=== PATIENT | female | born 1985 | race Caucasian/White ===

== ENCOUNTER 2016-09-17 21:37 | Emergency (ER) | payer OTHER ==
[~2016-09-17] VITALS: Ht 170.2 cm; Wt 122.1 kg
[2016-09-17 21:39] VITALS: TEMP 36.3; Ht 170.2 cm; Wt 122.1 kg
[2016-09-17] MEDS ORDERED: SODIUM CHLORIDE 0.9% 1000ML 1,000 ML IV STA (22:43)
[2016-09-17] MEDS ORDERED: ONDANSETRON INJ 2 MG/ML 2 ML VIAL IV STA (22:43)
[2016-09-17] MEDS ORDERED: KETOROLAC TROMETHAMINE 30 MG/ML VIAL IV STA (22:43)
[2016-09-17 23:10] LABS: HEMATOCRIT 39.5 % (37-47); MEAN CORPUSCULAR HEMOGLOBIN 26.3 pg (25-34); MEAN CORPUSCULAR HGB CONC 32.2 g/dl (32-36); MEAN PLATELET VOLUME 10.6 fL (7.4-10.4); PLATELET COUNT 323 K/uL (130-400); RED BLOOD COUNT 4.82 M/uL (4.2-5.4); URINE APPEARANCE CLEAR (CLEAR); URINE BILIRUBIN NEG (NEG); URINE COLOR YELLOW; URINE NITRITE NEG (NEG); URINE SPECIFIC GRAVITY 1.035 (1.000-1.030); UROBILINOGEN NEG (NEG); WHITE BLOOD COUNT 9.44 K/uL (4.8-10.8); ZZUR CULT IF INDIC CLEAN CATCH NO
[2016-09-17 23:11] LABS: MANUAL MICROSCOPIC REQUIRED? NO; REVIEW REQ? NO
--- NOTE | 2016-09-17 23:15 | EMERGENCY ROOM VISIT NOTE ---
History Report prepared by Zoran: Brennen Negrete Under the Supervision of: Dr. Joann Scott M.D. First contact with patient: 22:35 Chief Complaint: URINARY SYMPTOMS Stated Complaint: BURNING,FOUL URINE ODER,PAIN History of Present Illness The patient is a 30 year old female who presents to the Emergency Room with complaints of worsening dysuria beginning a few months ago. She currently rates her discomfort an 8/10 in severity. The patient states that she has had malodorous urine for the past few months and has been checking up with her PCP. The patient notes that she has had clear discharge upon urination. She reports that she was [facility] [employer] this evening and started vomiting. She also notes that she has had back pain. The patient notes that is currently taking quinapril. She denies any chance of being , and her last menstrual period was two weeks ago. She states that she is occasionally sexually active with her boyfriend but has not been for a little bit. The patient reports that she had to move her follow-up appointment with her PCP to tomorrow because of her blood pressure fluctuations. She states that she has pre-diabetes. Source of History: patient Onset: few months ago Position: other (bladder) Symptom Intensity: 8/10 Quality: other (dysuria) Timing: worsening Associated Symptoms: + vomiting, + back pain Review of Systems See HPI for pertinent positives & negatives. A total of 10 systems reviewed and were otherwise negative. Past Medical & Surgical Medical Problems: (1) Asthma (2) Diabetes (3) Hypertension Surgical Problems: (1) Hx of tonsillectomy Family History Cancer Diabetes mellitus Heart disease Hypertension Social History Smoking Status: Never Smoker Smokeless Tobacco Use: No Alcohol Use: none Marital Status: other (legally seperated) Housing Status: lives alone Occupation Status: student Current/Historical Medications Scheduled Terconazole (Terconazole), 1 APPL PV qhs Physical Exam Vital Signs Date Time Temp Pulse Resp B/P (MAP) Pulse Ox O2 Delivery O2 Flow Rate FiO2 09/18/16 00:05 68 17 118/71 95 09/17/16 23:09 74 18 147/78 97 Room Air 09/17/16 21:39 36.3 73 18 135/81 95 Room Air Physical Exam Vital signs reviewed. General: Well-appearing, obese, in no significant distress. HEENT: No scleral icterus, PERRLA, neck supple. Atraumatic. Cardiovascular: Regular rate and rhythm, no extra sounds. Pulmonary: Clear to auscultation bilaterally, normal work of breathing. Abdomen: Soft, mild suprapubic tenderness, nondistended, positive bowel sounds. Pelvic exam: extremely limited to body habitus, mild labial irritation, no appreciable lesion, foul odor, chunky white vaginal discharge, cervix not appreciated. Musculoskeletal: Atraumatic, no peripheral edema. Neurologic: Patient awake alert and oriented x 3, full strength in all 4 extremities. Cranial nerves 2 through 12 grossly intact. Skin: Warm, dry, no rash Medical Decision & Procedures Laboratory Results 09/17/16 22:55 Red Blood Count 4.82, Mean Corpuscular Volume 82.0, Mean Corpuscular Hemoglobin 26.3, Mean Corpuscular Hemoglobin Concent 32.2, Mean Platelet Volume 10.6, Neutrophils (%) (Auto) 46.8, Lymphocytes (%) (Auto) 41.5, Monocytes (%) (Auto) 9.0, Eosinophils (%) (Auto) 2.0, Basophils (%) (Auto) 0.4, Neutrophils # (Auto) 4.41, Lymphocytes # (Auto) 3.92, Monocytes # (Auto) 0.85, Eosinophils # (Auto) 0.19, Basophils # (Auto) 0.04 09/17/16 22:55 Test 09/17/16 22:55 09/17/16 23:30 White Blood Count 9.44 K/uL (4.8-10.8) Red Blood Count 4.82 M/uL (4.2-5.4) Hemoglobin 12.7 g/dL (12.0-16.0) Hematocrit 39.5 % (37-47) Mean Corpuscular Volume 82.0 fL (80-100) Mean Corpuscular Hemoglobin 26.3 pg (25-34) Mean Corpuscular Hemoglobin Concent 32.2 g/dl (32-36) Platelet Count 323 K/uL (130-400) Mean Platelet Volume 10.6 fL (7.4-10.4) Neutrophils (%) (Auto) 46.8 % Lymphocytes (%) (Auto) 41.5 % Monocytes (%) (Auto) 9.0 % Eosinophils (%) (Auto) 2.0 % Basophils (%) (Auto) 0.4 % Neutrophils # (Auto) 4.41 K/uL (1.4-6.5) Lymphocytes # (Auto) 3.92 K/uL (1.2-3.4) Monocytes # (Auto) 0.85 K/uL (0.11-0.59) Eosinophils # (Auto) 0.19 K/uL (0-0.5) Basophils # (Auto) 0.04 K/uL (0-0.2) RDW Standard Deviation 42.0 fL (36.4-46.3) RDW Coefficient of Variation 13.9 % (11.5-14.5) Immature Granulocyte % (Auto) 0.3 % Immature Granulocyte # (Auto) 0.03 K/uL (0.00-0.02) Red Blood Cell Morphology Unremarkable Urine Color YELLOW Urine Appearance CLEAR (CLEAR) Urine pH 6.0 (4.5-7.5) Urine Specific [place] 1.035 (1.000-1.030) Urine Protein NEG (NEG) Urine Glucose (UA) NEG (NEG) Urine Ketones TRACE (NEG) Urine Occult Blood NEG (NEG) Urine Nitrite NEG (NEG) Urine Bilirubin NEG (NEG) Urine Urobilinogen NEG (NEG) Urine Leukocyte Esterase NEG (NEG) Urine Test NEG (NEG) Anion Gap 9.0 mmol/L (3-11) Est Creatinine Clear Calc Drug Dose 132.3 ml/min Estimated GFR () 107.3 Estimated GFR (Non- 92.6 BUN/Creatinine Ratio 22.6 (10-20) Calcium Level 8.6 mg/dl (8.5-10.1) Total Bilirubin 0.2 mg/dl (0.2-1) Direct Bilirubin < 0.1 mg/dl (0-0.2) Aspartate Amino Transf (AST/SGOT) 26 U/L (15-37) Alanine Aminotransferase (ALT/SGPT) 58 U/L (12-78) Alkaline Phosphatase 89 U/L (45-117) Total Protein 7.0 gm/dl (6.4-8.2) Albumin 3.7 gm/dl (3.4-5.0) Date/Time Source Procedure Growth Status 09/17/16 23:30 Cervix Swab Trichomonas Preparation - Final Complete Laboratory results per my review. Medications Administered Medications (Trade) Dose Ordered Sig/Rodrigo Route Start Time Stop Time Status Last Admin Dose Admin Ketorolac Tromethamine (Toradol Inj) 30 mg NOW STAT IV 09/17/16 22:43 09/17/16 22:44 DC 09/17/16 23:09 30 MG Ondansetron HCl (Zofran Inj) 4 mg NOW STAT IV 09/17/16 22:43 09/17/16 22:44 DC 09/17/16 23:09 4 MG Sodium Chloride 1,000 ml @ 999 mls/hr Q1H1M STAT IV 09/17/16 22:43 09/17/16 23:43 DC 09/17/16 23:09 999 MLS/HR Fluconazole (Diflucan Tab) 150 mg NOW STAT PO 09/17/16 23:49 09/17/16 23:50 DC 09/17/16 23:53 150 MG ED Course 2240: Past medical records reviewed. The patient was evaluated in room C05. A complete history and physical examination was performed. 2243: Ordered Sodium Chloride 1000 ml @ 999 mls/hr IV, Zofran Inj 4mg IV, Toradol Inj 30mg IV 2327: At this time I performed a pelvic exam, see physical exam for further detail. I discussed findings with her. She verbalized agreement of the treatment plan. The patient will be discharged home when she receives her medication. 2349: Ordered Diflucan 150mg PO Medical Decision Differential diagnosis: UTI, kidney stone, vaginitis, pyelonephritis, diverticulitis This patient was evaluated and appeared to be in no significant distress. IV access was obtained and laboratory work was drawn. The patient was feeling somewhat improved with IV Toradol IV Zofran and IV hydration. Urinalysis is negative. A pelvic exam was performed and cultures were obtained. It seems as though the patient is several from a vaginal candidiasis. She was given 150 mg of Diflucan orally. She is given a prescription for Terazol 7. Patient will follow-up with [facility] this week for reevaluation and follow-up regarding her cultures. The patient will return to the ER for worsening of symptoms or any medical concerns. Impression Primary Impression: Yeast infection involving the vagina and surrounding area Scribe Attestation The scribe's documentation has been prepared under my direction and personally reviewed by me in its entirety. I confirm that the note above accurately reflects all work, treatment, procedures, and medical decision making performed by me. Departure Information Dispostion Home / Self-Care Prescriptions Terconazole (Terconazole) 7 Appln/45 Gm Cr 1 APPL PV qhs for 7 Days, #1 BOX Prov: Joann Scott M.D. 09/17/16 Referrals Ronny Bo M.D. (PCP) Forms HOME CARE DOCUMENTATION FORM, IMPORTANT VISIT INFORMATION Patient Instructions My [facility] Additional Instructions Diagnosis: Yeast infection, vaginal You were given diflucan in the ED Terazol 7, 1 applicator full into vagina at night before bed for 7 days. Follow up with OBGYN for reevaluation. Vaginal cultures are pending and you will be contacted if additional treatment is needed. Return to emergency for worsening of symptoms or any medical concerns.
[2016-09-17 23:29] LABS: ALT/SGPT 58 U/L (12-78); AST/SGOT 26 U/L (15-37); BLOOD UREA NITROGEN 19 mg/dl (7-18); BUN/CREATININE RATIO 22.6 (10-20); CALCIUM 8.6 mg/dl (8.5-10.1); CARBON DIOXIDE 26 mmol/L (21-32); CHLORIDE 111 mmol/L (98-107); CREATININE 0.85 mg/dl (0.60-1.20); GLUCOSE 97 mg/dl (70-99); POTASSIUM 3.8 mmol/L (3.5-5.1); SODIUM 146 mmol/L (136-145)
[2016-09-17 23:32] LABS: ALKALINE PHOSPHATASE 89 U/L (45-117)
[2016-09-17 23:34] LABS: BASO % 0.4 %; BASO ABS # 0.04 K/uL (0-0.2); COMPLETE YES; IG% 0.3 %; LYMPH % 41.5 %; LYMPH ABS # 3.92 K/uL (1.2-3.4); NEUT % 46.8 %
[2016-09-17] MEDS ORDERED: FLUCONAZOLE 50 MG TAB PO STA (23:49)
[2016-09-17] MEDS ORDERED: TRZVC PV ×2 (23:55→23:59)
[2016-09-18 00:05] VITALS: BP 118/71; PULSE 68; O2SAT 95
[2016-09-20 12:51] LABS: CHLAMYDIA TRACH RNA*** NOT DETECTED (NOT DETECTED); GC (NEIS GONORRHOEAE)RNA** NOT DETECTED (NOT DETECTED); TRICHOMONAS VAGINALIS RNA** NOT DETECTED (NOT DETECTED)
== END 2016-09-18 00:05 | disposition home or self-care (01) ==
LOC: C.EDB 21:38 → C.EDC 09-18 00:05
DX: B37.9 Candidiasis, unspecified (principal); E11.9 Type 2 diabetes mellitus without complications; I10 Essential (primary) hypertension; J45.909 Unspecified asthma, uncomplicated; Z98.890 Other specified postprocedural states; Z80.9 Family history of malignant neoplasm, unspecified; Z83.3 Family history of diabetes mellitus; Z82.49 Family history of ischemic heart disease and other diseases of the circulatory system

== ENCOUNTER 2016-09-25 22:39 | Emergency (ER) | payer OTHER ==
[~2016-09-25] VITALS: Ht 170.2 cm; Wt 130.4 kg
[~2016-09-25 22:39] MED LIST: TRZVC PV
[2016-09-25 22:40] VITALS: TEMP 36.5; Ht 170.2 cm; Wt 130.4 kg
[2016-09-25] MEDS ORDERED: KETOROLAC TROMETHAMINE 60 MG/2 ML VIAL IM STA (23:14)
--- NOTE | 2016-09-25 23:20 | EMERGENCY ROOM VISIT NOTE ---
History Report prepared by Zoran: Fausto Duenas Under the Supervision of: Dr. Joann Scott M.D. First contact with patient: 23:06 Chief Complaint: UNABLE TO VOID Stated Complaint: LOWER BACK PAIN, HAVING TROUBLE MOVING KIDNEYS Nursing Triage Summary: Patient reports she is having difficulty urinating. Associates burning and pain with urination. Last void 1430 today. Patient had yeast infection last week. History of Present Illness The patient is a 30 year old female who presents to the Emergency Room with complaints of persistent urinary symptoms starting about a week ago. She has burning with urination, and decreased urinary output. She had a small amount of urination about 9 hours ago and upon arrival to the Emergency Room. The patient was diagnosed with a yeast infection. She had been applying the prescribed yeast infection medication without relief. She continues to have some itching. She was evaluated by her OB[employer]ATH DESIGNER today and had a negative pelvic exam. A culture was obtained and she was told that she will be given the results in 48 hours. The patient also currently complains of some back pain. She denies fevers, chills, nausea, vomiting, or any other complaints. Source of History: patient Onset: about a week ago Position: other (global) Quality: other (urinary symptoms) Timing: other (persistent) Associated Symptoms: + back pain, No fevers, No chills, No nausea, No vomiting Review of Systems See HPI for pertinent positives & negatives. A total of 10 systems reviewed and were otherwise negative. Past Medical & Surgical Medical Problems: (1) Asthma (2) Diabetes (3) Hypertension Surgical Problems: (1) Hx of tonsillectomy Family History Cancer Diabetes mellitus Heart disease Hypertension Social History Smoking Status: Never Smoker Alcohol Use: none Marital Status: other Housing Status: lives alone Occupation Status: student Current/Historical Medications Scheduled Fluticasone Prop/Salmeterol (Advair Diskus 100/50 60 Dose), 1 PUFF INH BID Lisinopril (Prinivil), 10 MG PO DAILY Montelukast Sodium (Montelukast Sodium), 1 TAB PO DAILY Terconazole (Terconazole), 1 APPL PV qhs Scheduled PRN Albuterol Hfa (Ventolin Hfa), 2 PUFFS INH Q6H PRN for SOB/Wheezing Allergies Coded Allergies: No Known Allergies (Unverified , 09/25/16) Physical Exam Vital Signs Date Time Temp Pulse Resp B/P (MAP) Pulse Ox O2 Delivery O2 Flow Rate FiO2 09/26/16 01:56 79 18 104/63 98 Room Air 09/25/16 22:40 36.5 88 18 151/95 97 Room Air Physical Exam Vital signs reviewed. General: Well-appearing, in no significant distress. HEENT: No scleral icterus, PERRLA, neck supple. Atraumatic. Cardiovascular: Regular rate and rhythm, no extra sounds. Pulmonary: Clear to auscultation bilaterally, normal work of breathing. Abdomen: Obese, soft, some mild suprapubic tenderness, nondistended, positive bowel sounds. Back: No CVA tenderness. Musculoskeletal: Atraumatic, no peripheral edema. Neurologic: Patient awake alert and oriented x 3, full strength in all 4 extremities. Cranial nerves 2 through 12 grossly intact. Skin: Warm, dry, no rash Medical Decision & Procedures ER Provider Diagnostic Interpretation: US results as stated below per my review and radiologist interpretation: US RENAL No hydronephrosis bilaterally. Moderate hepatomegaly. Spleen is at the upper limits of normal in size. Radiologist: Arianna Kumar MD US PELVIC/ENDOVAG 1.6 centimeter right ovarian dominant follicle. Ovaries are otherwise within normal limits without evidence of torsion bilaterally. Uterus is unremarkable. Radiologist: Arianna Kumar MD Laboratory Results Test 09/25/16 23:20 Urine Color YELLOW Urine Appearance CLEAR (CLEAR) Urine pH 5.0 (4.5-7.5) Urine Specific [place] 1.022 (1.000-1.030) Urine Protein NEG (NEG) Urine Glucose (UA) NEG (NEG) Urine Ketones NEG (NEG) Urine Occult Blood NEG (NEG) Urine Nitrite NEG (NEG) Urine Bilirubin NEG (NEG) Urine Urobilinogen NEG (NEG) Urine Leukocyte Esterase NEG (NEG) Urine Test NEG (NEG) Laboratory results per my review. Medications Administered Medications (Trade) Dose Ordered Sig/Rodrigo Route Start Time Stop Time Status Last Admin Dose Admin Ketorolac Tromethamine (Toradol Inj) 60 mg NOW STAT IM 09/25/16 23:14 09/25/16 23:15 DC 09/25/16 23:32 60 MG ED Course 2306: Past medical records reviewed. The patient was evaluated in room C04. A complete history and physical examination was performed. 2314: Toradol Inj 60 mg IM 0150: Upon reevaluation, the patient appeared to have improvement of her symptoms. I discussed findings with her. She verbalized agreement of the treatment plan. She was discharged home. Medical Decision Differential diagnosis: Etiologies such as appendicitis, diverticulitis, PUD, biliary pathology, UTI, pancreatitis, obstruction, mesenteric ischemia, aortic pathology, infections, inflammatory bowel disease, renal colic, as well as others were entertained. This patient was evaluated and appeared to be in no significant distress. Patient had a pelvic exam performed yesterday by her SURVEYING [employer]KE [employer]NER. Cultures from the exam that I had performed one week ago were reviewed and are negative. Pelvic ultrasound was performed and is negative for significant acute abnormality, there is no hydronephrosis on renal scan. Patient was given IM Toradol for her discomforts. The imaging results were reviewed. Urinalysis is negative. Patient will be discharged to follow-up with her SUR[employer]YING [employer] ST[employer]NER as scheduled. She will return to the ER for worsening of symptoms or any medical concerns. Impression Primary Impression: Vaginal irritation Additional Impression: Flank pain Scribe Attestation The scribe's documentation has been prepared under my direction and personally reviewed by me in its entirety. I confirm that the note above accurately reflects all work, treatment, procedures, and medical decision making performed by me. Departure Information Dispostion Home / Self-Care Referrals Ronny Bo M.D. (PCP) Jo Avila Forms HOME CARE DOCUMENTATION FORM, IMPORTANT VISIT INFORMATION, WORK / SCHOOL INSTRUCTIONS Patient Instructions My [facility] Additional Instructions Diagnosis: Flank pain, vaginal irritation Ibuprofen 600 mg every 6 hours as needed for pain with food. Drink plenty of clear fluids. Follow-up with your SURVEYING [employer] ST[employer] RUNNER regarding your recent culture results and your primary care physician regarding the flank pain. Return to the ER for worsening of symptoms or any medical concerns. Problem Qualifiers
[2016-09-25] MEDS ORDERED: ADVIN10/60 INH (23:21)
[2016-09-25] MEDS ORDERED: MONT1TAB5 PO (23:21)
[2016-09-25] MEDS ORDERED: VNTHFA/IN INH (23:21)
[2016-09-25] MEDS ORDERED: LISI10TA PO (23:21)
[2016-09-25 23:38] LABS: URINE APPEARANCE CLEAR (CLEAR); URINE BILIRUBIN NEG (NEG); URINE COLOR YELLOW; URINE NITRITE NEG (NEG); URINE SPECIFIC GRAVITY 1.022 (1.000-1.030); UROBILINOGEN NEG (NEG); ZZUR CULT IF INDIC CLEAN CATCH NO
[2016-09-25 23:45] LABS: PREG INTERNAL NEGATIVE QC NEG CLEAR BACKGROUND; PREG INTERNAL POSITIVE QC POS CONTROL LINE
[2016-09-25 23:46] LABS: MANUAL MICROSCOPIC REQUIRED? NO; REVIEW REQ? NO
[2016-09-26 01:56] VITALS: BP 104/63; PULSE 79; O2SAT 98
--- NOTE | 2016-09-26 06:59 | DIAGNOSTIC IMAGING REPORT ---
EXAMINATION: PELVIC ULTRASOUND (transabdominal and endovaginal scanning) CLINICAL HISTORY: Pelvic burning. Difficulty urinating. COMPARISON STUDY: FINDINGS: The study was difficult from a technical standpoint secondary to the patient's large body habitus. The uterus measured 6.8 x 3.1 x 3.6 cm. The endometrial stripe measured 8 mm. The right ovary measured 35 x 23 x 23 mm. There is a 16 mm dominant follicle. The left ovary measured 35 x 28 x 30 mm. There are multiple peripheral follicles. There is no ultrasonographic evidence of ovarian torsion. It should be noted that ovarian torsion can be present with normal Doppler ultrasonographic findings. There was no evidence of pathologic free pelvic fluid. IMPRESSION: No significant abnormalities Electronically signed by: Roger Segovia M.D. 09/26/2016 6:57 AM Dictated Date/Time: 09/26/2016 6:55 AM
--- NOTE | 2016-09-26 07:12 | DIAGNOSTIC IMAGING REPORT ---
RENAL ULTRASOUND HISTORY: bilateral flank pain COMPARISON: None. FINDINGS: Right kidney: 10.1 cm. No hydronephrosis. Normal corticomedullary differentiation and cortical thickness. Left kidney: 11.3 cm. No hydronephrosis. Normal corticomedullary differentiation and cortical thickness. Bladder: No bladder wall thickening. The bilateral ureteral jets were identified. The liver measures 20.7 cm in length and is echogenic consistent with fatty change. The spleen measures 13 cm in length. IMPRESSION: 1. Normal renal ultrasound. 2. Mild hepatomegaly demonstrating fatty change. 3. The spleen is at the upper limits of normal. Electronically signed by: Chemo Davila M.D. 09/26/2016 7:10 AM Dictated Date/Time: 09/26/2016 7:09 AM
== END 2016-09-26 01:53 | disposition home or self-care (01) ==
LOC: C.EDB 22:39 → C.EDC 09-26 01:53
DX: N89.8 Other specified noninflammatory disorders of vagina (principal); R10.30 Lower abdominal pain, unspecified; J45.909 Unspecified asthma, uncomplicated; E11.9 Type 2 diabetes mellitus without complications; I10 Essential (primary) hypertension; Z80.9 Family history of malignant neoplasm, unspecified; Z83.3 Family history of diabetes mellitus; Z82.49 Family history of ischemic heart disease and other diseases of the circulatory system; Z79.899 Other long term (current) drug therapy

== ENCOUNTER → 2017-03-12 | Outpatient (CLI) | payer OTHER ==
[~2017-03-12] MED LIST changes: +ADVIN10/60 INH; +LISI10TA PO; +MONT1TAB5 PO; +VNTHFA/IN INH
--- NOTE | 2017-03-12 14:25 | DIAGNOSTIC IMAGING REPORT ---
R WRIST MIN 3 VIEWS ROUTINE HISTORY: 31 years-old Female WRIST acute right wrist pain status post fall COMPARISON: None available TECHNIQUE: 4 views of the right wrist FINDINGS: No acute fracture, dislocation or significant degenerative changes. Soft tissues are within normal limits without opaque foreign body. IMPRESSION: No acute fracture or dislocation. The above report was generated using voice recognition software. It may contain grammatical, syntax or spelling errors. Electronically signed by: Alex Paniagua M.D. 03/12/2017 2:24 PM Dictated Date/Time: 03/12/2017 2:22 PM
== END | disposition home or self-care (01) ==
LOC: C.RAD1850 14:11
PROVIDERS: ATTEND Nurse Practitioner Family
DX: M25.531 Pain in right wrist (principal)